=== PATIENT | female | born 1950 | race Caucasian/White ===

== ENCOUNTER → 2016-12-31 | Outpatient (CLI) | payer OTHER ==
[2016-12-31 09:34] LABS: BASO ABS # 0.05 K/uL (0-0.2); COMPLETE YES; EOS % 2.3 %; HEMATOCRIT 42.7 % (37-47); IG% 0.2 %; LYMPH % 36.7 %; MEAN CELL VOLUME 90.7 fL (80-100); MEAN CORPUSCULAR HEMOGLOBIN 30.6 pg (25-34); MEAN CORPUSCULAR HGB CONC 33.7 g/dl (32-36); MEAN PLATELET VOLUME 9.3 fL (7.4-10.4); MONO % 8.9 %; NEUT % 50.9 %; PLATELET COUNT 316 K/uL (130-400); RED BLOOD COUNT 4.71 M/uL (4.2-5.4); WHITE BLOOD COUNT 5.18 K/uL (4.8-10.8)
[2016-12-31 11:01] LABS: ESTIMATED AVERAGE GLUCOSE 120 mg/dl; HA1C FLAG Normal (Normal)
[2016-12-31 11:54] LABS: ALB/GLOB RATIO 1.3 (0.9-2); ALT/SGPT 18 U/L (12-78); AST/SGOT 12 U/L (15-37); BLOOD UREA NITROGEN 19 mg/dl (7-18); BUN/CREATININE RATIO 23.2 (10-20); CARBON DIOXIDE 30 mmol/L (21-32); CHLORIDE 105 mmol/L (98-107); CHOLESTEROL 139 mg/dl (0-200); CREATININE 0.82 mg/dl (0.60-1.20); GLUCOSE 99 mg/dl (70-99); POTASSIUM 3.5 mmol/L (3.5-5.1); SODIUM 141 mmol/L (136-145)
[2016-12-31 12:07] LABS: ALKALINE PHOSPHATASE 74 U/L (45-117); HDL CHOLESTEROL 47 mg/dl; LDL CHOLESTEROL CALCULATED 76 mg/dl; TRIGLYCERIDES 82 mg/dl (0-150); VERY LOW DENSITY LIPOPROT CALC 16 mg/dl
== END | disposition home or self-care (01) ==
LOC: C.LAB1850 07:55
PROVIDERS: ATTEND Nurse Practitioner Adult Health
DX: R73.03 Prediabetes (principal); I10 Essential (primary) hypertension; L65.9 Nonscarring hair loss, unspecified; R53.83 Other fatigue; M19.90 Unspecified osteoarthritis, unspecified site

== ENCOUNTER → 2017-02-03 | Outpatient (CLI) | payer OTHER, MEDICARE ==
--- NOTE | 2017-02-05 09:10 | POLYSOMNOGRAPH REPORT ---
CLINICAL DATA: A 66-year-old female with a BMI of 25.66 referred by myself and her primary care physician for evaluation of sleep apnea. She is currently on CPAP 8 cm of water pressure. Due to Medicare requirements, she needed to establish continued need for CPAP. On the evening of 02/03/2017, a home sleep apnea test was performed using a [employer] type 3 monitor. RECORDING RESULTS: Total recording time was 10 hours. The patient's monitoring time and estimated sleep time was 8.9 hours. RESPIRATORY DATA: Mild sleep apnea was documented. The JAMEY was 5.8. There were 47 obstructive apneic episodes and 4 hypopneic episodes. The longest respiratory event was 43 seconds. OXIMETRY DATA: Transient hypoxemia was seen. Oxygen jeremy was 85%. Mean saturation was 95%. Time below 89% was 2 minutes. HEART RATE DATA: Heart rates ranged from 52-59 beats per minute. SNORING DATA: Snoring was recorded throughout the night. IMPRESSION: Mild obstructive sleep apnea with an JAMEY of 5.8 with transient nocturnal hypoxemia. RECOMMENDATIONS: The patient should continue treatment with CPAP. MONTY
== END | disposition home or self-care (01) ==
LOC: C.NEUR 10:16
PROVIDERS: ATTEND Internal Medicine Pulmonary Disease
DX: G47.33 Obstructive sleep apnea (adult) (pediatric) (principal)